=== PATIENT | female | born 1945 | race Caucasian/White ===

== ENCOUNTER 2025-01-09 19:39 | Outpatient (REF) | payer OTHER, SELFPAY ==
[2025-01-09 19:45] LABS: ALT 25 U/L (14-59); AST 22 U/L (15-37); Albumin 3.7 g/dL (3.4-5.0); Alkaline Phosphatase 96 U/L (46-116); Anion Gap 5.9 mmol/L (3-11); BUN 20 mg/dL (7-18); Bilirubin, Total 0.5 mg/dL (0.2-1.0); CO2 30.1 mmol/L (21.0-32.0); CREATININE 0.9 mg/dL (0.55-1.02); Calcium 9.5 mg/dL (8.5-10.1); Chloride 105 mmol/L (98-107); Estimated GFR 65.03 (mL/min/1.73m2); Glucose 168 mg/dL (74-106); Magnesium 1.9 mg/dL (1.8-2.4); Potassium 4.5 mmol/L (3.5-5.1); Sodium 141 mmol/L (136-145); TSH (W/Ref FT4) 0.58 uIU/mL (0.36-3.74); Total Protein 6.7 g/dL (6.4-8.2)
== END 2025-01-09 19:40 | disposition home or self-care (01) ==
LOC: NCHCN 19:39
PROVIDERS: Visit Provider Physician Assistant
DX: R42 Dizziness and giddiness (principal)
CPT/HCPCS: 80053; 83735; 84443

== ENCOUNTER 2025-07-07 15:38 | Outpatient (REF) | payer MEDICARE, SELFPAY ==
[2025-07-07 19:34] LABS: Abs Immature Grans 0.01 10^3/uL (0.0-0.06); HCT 45.3 % (36.0-46.0); HGB 15.1 g/dL (11.2-15.7); Immature Grans % 0.1 %; MCH 31.2 pg (27.0-33.0); MCHC 33.3 % (32.0-36.0); MCV 94 fL (80-95); MPV 11.2 fL (8.0-11.0); Platelet Count 188 10^3/uL (130-400); RBC 4.84 10^6/uL (3.93-5.22); RDW 13.1 % (11.7-14.6); RDW-SD 44.6 fL; WBC 8.57 10^3/uL (4.4-10.8)
[2025-07-07 19:52] LABS: ALT 20 U/L (10-49); AST 22 U/L (<34); Albumin 4.4 g/dL (3.4-5.0); Alkaline Phosphatase 130 U/L (46-116); Anion Gap 9.7 mmol/L (3-11); BUN 21 mg/dL (9-23); Bilirubin, Total 0.60 mg/dL (0.2-1.2); CO2 28.3 mmol/L (20.0-31.0); Calcium 9.5 mg/dL (8.3-10.6); Chloride 103 mmol/L (98-107); Glucose 152 mg/dL (74-106); Potassium 4.2 mmol/L (3.5-5.1); Sodium 141 mmol/L (136-145); Total Protein 6.6 g/dL (5.7-8.2)
== END 2025-07-07 15:39 | disposition home or self-care (01) ==
LOC: NCHCN 15:38
PROVIDERS: Visit Provider Physician Assistant
DX: Z01.818 Encounter for other preprocedural examination (principal)
CPT/HCPCS: 80053; 85025